=== PATIENT | male | born 1940 | race Caucasian/White ===

== ENCOUNTER 2021-10-12 14:07 | Emergency (ER) | payer MEDICARE, OTHER ==
[~2021-10-12] VITALS: Ht 188 cm; Wt 84.1 kg
[2021-10-12 14:13] VITALS: TEMP 98.3
[2021-10-12 15:18] LABS: BASO # 0.1 K/mm3 (0.0-0.2); BASO % 0.7 % (0.0-2.0); EOS # 0.1 K/mm3 (0.0-0.7); EOS % 1.9 % (0-4.0); GRAN # 4.5 K/mm3 (1.4-6.5); GRAN % 66.9 % (42.2-75.2); HEMATOCRIT 43.3 % (42.0-52.0); HEMOGLOBIN 14.4 g/dl (13.5-18.0); LYMPH # 1.5 K/mm3 (1.2-3.4); LYMPH % 22.8 % (20.0-51.0); MEAN CELL VOLUME 88 fl (80.0-100.0); MEAN CORPUSCULAR HEMOGLOBIN 29 pg (27.0-31.0); MEAN CORPUSCULAR HGB CONC 33 g/dl (33.0-37.0); MEAN PLATELET VOLUME 10.3 fl (7.4-10.4); MONO # 0.5 K/mm3 (0.1-0.6); MONO % 7.4 % (1.7-9.3); PLATELET COUNT 189 K/mm3 (130-400); REDCELL DISTRIBUTION WIDTH-CV 13.4 % (11.5-14.5)
[2021-10-12 15:19] LABS: INR 1.1 (0.8-3.0); PROTHROMBIN TIME 11.8 SECONDS (9.7-12.8)
[2021-10-12 15:30] LABS: ALBUMIN 4.1 gm/dL (3.4-4.8); BILIRUBIN,TOTAL 0.6 mg/dL (0.2-1.2); CALCIUM 9.5 mg/dL (8.4-10.2); CREATININE, serum 1.18 mg/dL (0.72-1.25); POTASSIUM 4.4 mmol/L (3.5-4.5); TOTAL PROTEIN 7.1 gm/dL (6.2-8.1)
[2021-10-12 16:48] VITALS: BP 155/95; PULSE 60
== END 2021-10-12 16:49 | disposition short-term general hospital (02) ==
LOC: COL.ER 14:07
PROVIDERS: Nurse Practitioner
DX: I62.02 Nontraumatic subacute subdural hemorrhage (principal); I10 Essential (primary) hypertension; E11.9 Type 2 diabetes mellitus without complications
CPT/HCPCS: J1953

== ENCOUNTER → 2021-10-12 | Outpatient (CLI) | payer MEDICARE, OTHER | LOC: COL.RAD 13:16 | DX: G93.5 Compression of brain (principal); Z96.1 Presence of intraocular lens ==

== ENCOUNTER 2021-10-19 22:14 | Emergency (ER) | payer MEDICARE, OTHER ==
[~2021-10-19] VITALS: Ht 188 cm; Wt 82.7 kg
[2021-10-19 22:47] VITALS: TEMP 98
[2021-10-20 00:35] LABS: ALBUMIN 3.2 gm/dL (3.4-4.8); BILIRUBIN,TOTAL 0.5 mg/dL (0.2-1.2); CALCIUM 8.8 mg/dL (8.4-10.2); CREATININE, serum 1.08 mg/dL (0.72-1.25); POTASSIUM 3.9 mmol/L (3.5-4.5); TOTAL PROTEIN 6.3 gm/dL (6.2-8.1)
[2021-10-20 00:42] LABS: TROPONIN-I 0.013 ng/mL (0.00-0.033)
[2021-10-20 00:49] LABS: BASO % 0.5 % (0.0-2.0); EOS # 0.2 K/mm3 (0.0-0.7); EOS % 2.9 % (0.0-4.0); GRAN % 67.7 % (42.2-75.2); HEMOGLOBIN 12.5 g/dl (13.5-18.0); LYMPH # 1.1 K/mm3 (1.2-3.4); LYMPH % 18.9 % (20.0-51.0); MEAN CELL VOLUME 84 fl (80.0-100.0); MEAN CORPUSCULAR HEMOGLOBIN 29 pg (27-31); MEAN CORPUSCULAR HGB CONC 34 g/dl (33.0-37.0); MEAN PLATELET VOLUME 9.9 fl (7.4-10.4); MONO # 0.6 K/mm3 (0.1-0.6); MONO % 9.3 % (1.7-9.3); PLATELET COUNT 212 K/mm3 (130-400); REDCELL DISTRIBUTION WIDTH-CV 12.8 % (11.5-14.5)
[2021-10-20 00:58] LABS: HEMATOCRIT 36.3 % (42.0-52.0)
[2021-10-20] MEDS ORDERED: LIORESAL 1010 MG/TAB PO (02:11)
[2021-10-20 02:37] VITALS: BP 114/78; PULSE 76
== END 2021-10-20 02:37 | disposition home or self-care (01) ==
LOC: COL.ER 22:14
PROVIDERS: Personal Emergency Response Attendant
DX: R06.6 Hiccough (principal); R06.02 Shortness of breath; I10 Essential (primary) hypertension; E11.9 Type 2 diabetes mellitus without complications
CPT/HCPCS: J3230; Q9967

== ENCOUNTER → 2021-10-22 | Outpatient (CLI) | payer MEDICARE, OTHER ==
[~2021-10-22] MED LIST: LIORESAL 1010 MG/TAB PO
== END ==
LOC: COL.RAD 14:40
DX: S06.5X9A Traumatic subdural hemorrhage with loss of consciousness of unspecified duration, initial encounter (principal); Z98.890 Other specified postprocedural states

== ENCOUNTER → 2021-10-31 | Outpatient (CLI) | payer MEDICARE, OTHER | LOC: COL.VAS 13:55 | DX: R53.1 Weakness (principal); R26.89 Other abnormalities of gait and mobility ==

== ENCOUNTER → 2021-11-19 | Outpatient (CLI) | payer MEDICARE, OTHER | LOC: COL.RAD 12:30 | DX: S06.5X9A Traumatic subdural hemorrhage with loss of consciousness of unspecified duration, initial encounter (principal) ==

== ENCOUNTER → 2021-12-21 | Outpatient (CLI) | payer MEDICARE, OTHER | LOC: COL.RAD 06:55 | DX: S06.5X9A Traumatic subdural hemorrhage with loss of consciousness of unspecified duration, initial encounter (principal); X58.XXXA Exposure to other specified factors, initial encounter ==

== ENCOUNTER → 2022-03-13 | Outpatient (CLI) | payer MEDICARE, OTHER | LOC: COL.RAD 12:31 | DX: S06.5X9A Traumatic subdural hemorrhage with loss of consciousness of unspecified duration, initial encounter (principal) ==

== ENCOUNTER 2023-08-01 10:43 | Inpatient (IN) | payer MEDICARE, OTHER ==
[~2023-08-01] VITALS: Ht 188 cm; Wt 74.4 kg
[2023-08-01 11:29] LABS: BASO % 0.3 % (0.0-2.0); GRAN # 6.1 K/mm3 (1.4-6.5); GRAN % 75.6 % (42.2-75.2); HEMOGLOBIN 11.6 g/dl (13.5-18.0); LYMPH # 0.9 K/mm3 (1.2-3.4); LYMPH % 11.1 % (20.0-51.0); MEAN CELL VOLUME 88 fl (80.0-100.0); MEAN CORPUSCULAR HEMOGLOBIN 28 pg (27-31); MEAN CORPUSCULAR HGB CONC 32 g/dl (33.0-37.0); MEAN PLATELET VOLUME 9.9 fl (7.4-10.4); MONO % 12.4 % (1.7-9.3); PLATELET COUNT 241 K/mm3 (130-400); RED BLOOD COUNT 4.08 M/mm3 (4.20-5.60); REDCELL DISTRIBUTION WIDTH-CV 15.4 % (11.5-14.5)
[2023-08-01 11:30] LABS: HEMATOCRIT 35.9 % (42.0-52.0)
[2023-08-01 11:47] LABS: ALBUMIN 3.3 gm/dL (3.4-4.8); BILIRUBIN,TOTAL 1.1 mg/dL (0.2-1.2); CALCIUM 9.9 mg/dL (8.4-10.2); CREATININE, serum 2.45 mg/dL (0.72-1.25); TOTAL PROTEIN 8.1 gm/dL (6.2-8.1)
[2023-08-01 12:05] LABS: POTASSIUM 4.4 mmol/L (3.5-4.5)
[2023-08-01 12:36] LABS: COLLECTION METHOD CLEAN CATCH
[2023-08-01 13:02] LABS: URINE COLOR Yellow (YELLOW)
[2023-08-01 13:03] LABS: PH 6.5 (5.0-8.5); URINE APPEARANCE Cloudy (CLEAR/HAZY); URINE BLOOD 2+ (NEGATIVE); URINE GLUCOSE Negative (NEGATIVE); URINE KETONE Negative (NEGATIVE); URINE NITRATE Negative (NEGATIVE); URINE PROTEIN(semi-quant) 3+ (NEGATIVE); URINE UROBILINOGEN 0.2 E.U/dL (0.2-1.0)
[2023-08-01 13:19] LABS: SQUAMOUS EPITHELIAL 0-2 /hpf (0-10); URINE RBC None Seen /hpf (0-2)
[2023-08-01 13:21] LABS: URINE BACTERIA Rare /hpf (NONE SEEN)
[2023-08-01] MEDS ORDERED: GLUCOPHAGE XR750 MG PO (14:05)
[2023-08-01] MEDS ORDERED: JANUVIA50 MG PO (14:13)
[2023-08-01] MEDS ORDERED: LIPITOR20 MG PO (14:15)
[2023-08-01] MEDS ORDERED: PRINIVIL5 MG PO (14:16)
[2023-08-01 15:00] VITALS: BP 115/66; PULSE 84
--- NOTE | 2023-08-01 15:00 | NUR ---
PATIENT ARRIVED UP FROM ER IN STABLE CONDITION. PATIENTS VITAL SIGNS STABLE. HE DENIES ANY NEEDS OR COMPLAINTS AT THIS TIME. HOSPITALIST TEAM AWARE PATIENT IS ON THE UNIT.
--- NOTE | 2023-08-01 16:15 | NUR ---
PATIENT STATED HE HAS PRIOR UROLOGY HISTORY. THIS RN BLADDER SCANNED PATIENT WITH HOSPITALIST AT BEDSIDE. PVR SHOWED GREATER THAN 1225CC OF URINE. PATIENT STATED HE DID NOT FEEL LIKE HE NEEDED TO URINATE ANYMORE. VORB FOR FOUNTAIN CATHETER PLACEMENT RECIEVED. AND PLACED WITHOUT ISSUE. NEW UA/UC SENT.
[2023-08-01 17:14] VITALS: BP_SYST 115
[2023-08-01 17:22] LABS: COLLECTION METHOD CLEAN CATCH
[2023-08-01 17:30] LABS: URINE APPEARANCE Turbid (CLEAR/HAZY); URINE BLOOD 3+ (NEGATIVE); URINE COLOR OTHER (YELLOW); URINE GLUCOSE Negative (NEGATIVE); URINE KETONE TRACE (NEGATIVE); URINE NITRATE Positive (NEGATIVE); URINE PROTEIN(semi-quant) 3+ (NEGATIVE); URINE UROBILINOGEN 0.2 E.U/dL (0.2-1.0)
--- NOTE | 2023-08-01 17:31 | NUR ---
HOSPITALIST CALLED AND INFORMED AFTER FOUNTAIN CATHETER INSERTION. PATIENT HAD SOME PUSS COLORED URINE COME OUT. PER [facility] NEW UA REFLEX UC ORDERED. LAB CALLED BY THIS RN AND INFORMED TO RAUN SECOND SET OF URINE.
[2023-08-01 17:34] LABS: URINE BACTERIA Many /hpf (NONE SEEN); URINE RBC >50 /hpf (0-2)
[2023-08-01 19:42] VITALS: BP 150/62; PULSE 103; TEMP 102.1
[2023-08-01 23:20] VITALS: BP 99/46; PULSE 74; TEMP 97.5
[2023-08-02] VITALS (9 sets, daily range): BP systolic 103–134; BP diastolic 52–69; PULSE 62–90; TEMP 97.2–100.6
[2023-08-02 06:14] LABS: HEMOGLOBIN 10.1 g/dl (13.5-18.0); MEAN CELL VOLUME 86 fl (80.0-100.0); MEAN CORPUSCULAR HEMOGLOBIN 28 pg (27-31); MEAN CORPUSCULAR HGB CONC 33 g/dl (33.0-37.0); MEAN PLATELET VOLUME 10.8 fl (7.4-10.4); PLATELET COUNT 188 K/mm3 (130-400); RED BLOOD COUNT 3.59 M/mm3 (4.20-5.60); REDCELL DISTRIBUTION WIDTH-CV 14.9 % (11.5-14.5)
[2023-08-02 06:19] LABS: HEMATOCRIT 30.9 % (42.0-52.0)
[2023-08-02 06:43] LABS: CALCIUM 9.5 mg/dL (8.4-10.2); CREATININE, serum 2.05 mg/dL (0.72-1.25); MAGNESIUM 1.9 mg/dL (1.6-2.6)
--- NOTE | 2023-08-02 07:11 | NUR ---
NURSING SHIFT ASSESSMENT COMPLETED. THE PATIENT WAS ALERT AND ORIENTED. THE PLAN OF CARE AND EVENING MEDICATIONS WERE REVIEWED. FRESH WATER AND CRANBERRY JUICE PROVIDED. THE PATIENT DENIED OTHER NEEDS. CALL LIGHT WIHTIN REACH. BED IN LOW POSITION. BED ALARM ON.
--- NOTE | 2023-08-02 08:00 | NUR ---
MONITORING INTAKE AND OUTPUT PER PHYSICIAN REQUEST. PATIENT FOUNTAIN CATHETER WITH DARK YELLOW OUTPUT, SOME SEDIMENTATION NOTICED. PATIEN DENIES ANY NEEDS OR COMPLAINTS AT THIS TIME. FALL PRECAUTIONS IN PLACE. CALL LIGHT WITHIN REACH.
--- NOTE | 2023-08-02 16:32 | NUR ---
SW met with patient to conduct care management assessment and discuss on discharge planning. Puma reports that he resides at [facility] independent living with his ( Aleyda Vargas [phone]). 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 Patient informed SW that his PCP is Dr. Solomon Dumont and Pharmacy of choice is [facility]. Patient reports that he is independent with ADL's and does not utilize any DME's currently. Patient is excepting to be discharged back to his residence pending any further medical recommendations at this time.
[2023-08-03 00:28] VITALS: BP 107/52; PULSE 62; TEMP 98.1
[2023-08-03 03:56] VITALS: BP 122/52; PULSE 72; TEMP 98.4
[2023-08-03 07:14] LABS: MEAN CELL VOLUME 84 fl (80.0-100.0); MEAN CORPUSCULAR HGB CONC 34 g/dl (33.0-37.0); MEAN PLATELET VOLUME 10.3 fl (7.4-10.4); PLATELET COUNT 138 K/mm3 (130-400); RED BLOOD COUNT 3.01 M/mm3 (4.20-5.60); REDCELL DISTRIBUTION WIDTH-CV 14.7 % (11.5-14.5)
[2023-08-03 07:16] LABS: HEMATOCRIT 25.4 % (42.0-52.0); HEMOGLOBIN 8.6 g/dl (13.5-18.0); MEAN CORPUSCULAR HEMOGLOBIN 29 pg (27-31)
[2023-08-03 07:17] VITALS: BP 118/61; PULSE 73; TEMP 98.1
--- NOTE | 2023-08-03 07:21 | NUR ---
NURSING SHIFT ASSESSMENT COMPLETED. THE PATIENT WAS ALERT AND ORIENTED. THE PLAN OF CARE AND EVENING MEDICATIONS REVIEWED. THE PATIENT DENIED PAIN OR DISCOMFORT. THE PATIENT DENIED NEEDS. CALL LIGHT WITHIN REACH, BED IN LOW POSITION.
[2023-08-03 07:31] LABS: CALCIUM 8.4 mg/dL (8.4-10.2); CREATININE, serum 1.41 mg/dL (0.72-1.25); MAGNESIUM 1.6 mg/dL (1.6-2.6); POTASSIUM 3.3 mmol/L (3.5-4.5)
[2023-08-03] MEDS ORDERED: CEFTIN 250250 MG/TAB PO ×2 (08:56)
--- NOTE | 2023-08-03 09:14 | NUR ---
HOSPITALIST NOTIFIED OF URINE CULTURE RESULTS
[2023-08-03 09:30] VITALS: BP_SYST 118
--- NOTE | 2023-08-03 09:30 | NUR ---
PT AWAKE IN BED UPON ENTERING. FLUIDS RUNNING PER ORDER AND PT DENIES PAIN AT THIS TIME. FOUNTAIN DRAINING DEPENDENTL, URINE IS YELLOW AND CLEAR WITH SOME SEDIMENT NOTED. PT HAS A HEALING LACERATION TO TOP OF HEAD AND BRUISING TO BOTH ARMS. PT DENIES NEEDS AT THIS TIME. BED IN LOWEST POSITION, CALL LIGHT IN REACH, BED ALARM ON
[2023-08-03 11:18] VITALS: BP 118/58; PULSE 60; TEMP 98.5
--- NOTE | 2023-08-03 13:20 | NUR ---
IV DISCONTINUED. PT USUALLY INDEPENDENT AT HOME SO INDWELLING CATHETER BAG CHANGED TO LEG BAG, PT EDUCATED ON USE AND VERBALIZED UNDERSTANDING. PT CHANGED INTO PERSONAL CLOTHES AND BELONGINGS COLLECTED. DISCHARGE INSTRUCTIONS GIVEN AND PT VERBALIZED UNDERSTANDING. PT WAITING FOR RIDE AND DENIES NEEDS AT THIS TIME.
[2023-08-03 13:42] VITALS: BP_SYST 118
--- NOTE | 2023-08-05 10:23 | NUR ---
LAB NOTIFIED THIS RN OF BLOOD CULTURES POSITIVE FOR KLEBSIELLA PNA AND GRAM NEGATIVE RODS. PATIENT HAD ALREADY BEEN DISCHARGED FROM HOSPITAL. PT. PCP IS FERMIN BLEDSOE WHO IS NO LONGER PRACTICING. THIS RN CALLED [facility] OFFICE TO NOTIFY THEM OF BLOOD CULTURE RESULT. MATTHEW HAGAN, TOOK THE LAB RESULTS AND STATED SHE WOULD PASS ALONG INFORMATION TO ONE OF THE PHYSICIANS AND THAT NO FURTHER ACTIONS WERE NEEDED BY MYSELF.
[2023-08-05] MEDS ORDERED: CEPHALEXIN500 M1 PO (16:46)
== END 2023-08-03 14:00 | disposition home or self-care (01) | DRG 872 ==
LOC: COL.ER 10:43 → MEDICAL 13:42
PROVIDERS: Physician Assistant; ADMIT Internal Medicine
DX: A41.9 Sepsis, unspecified organism (principal); N39.0 Urinary tract infection, site not specified; N17.9 Acute kidney failure, unspecified; E11.9 Type 2 diabetes mellitus without complications; D64.9 Anemia, unspecified; E86.0 Dehydration; I10 Essential (primary) hypertension; R33.9 Retention of urine, unspecified; E78.5 Hyperlipidemia, unspecified; B96.1 Klebsiella pneumoniae [K. pneumoniae] as the cause of diseases classified elsewhere; E87.6 Hypokalemia; E83.42 Hypomagnesemia; R63.4 Abnormal weight loss; Z79.84 Long term (current) use of oral hypoglycemic drugs; Z87.442 Personal history of urinary calculi; Z79.899 Other long term (current) drug therapy; Z98.52 Vasectomy status; Z68.21 Body mass index [BMI] 21.0-21.9, adult
CPT/HCPCS: J0696; J1815; J7030